=== PATIENT | female | born 1990 | race Caucasian/White ===

== ENCOUNTER 2021-02-14 09:35 | Outpatient (CLI) | payer OTHER, SELFPAY ==
[2021-02-14 10:25] LABS: Hematocrit 35.1 % (37.0-47.0); Hemoglobin 11.4 g/dL (12.0-15.0); Mean Corpuscular HGB Conc 32.5 g/dl (32-36); Mean Corpuscular Hemoglobin 29.4 pg (26-34); Mean Corpuscular Volume 90.5 fl (80-100); Mean Platelet Volume 10.4 fl (7.4-10.4); Platelet Count Result 298 k/mm3 (150-375); Red Blood Count 3.88 M/mm3 (4.2-5.4); Red Cell Distribution Width 14.3 % (11.5-14.5); White Blood Count 12.1 K/mm3 (4.5-10.0)
[2021-02-14 10:39] LABS: Bilirubin,Total 0.2 mg/dL (0.2-1.3)
[2021-02-14 13:51] LABS: Rapid Plasma Reagin Non-Reactive (NonReactive)
== END 2021-02-14 09:36 | disposition home or self-care (01) ==
LOC: ANHLAB 09:38
PROVIDERS: Visit Provider Obstetrics & Gynecology
DX: Z01.818 Encounter for other preprocedural examination (principal)
CPT/HCPCS: 36415; 82247; 85027; 86592; 86850; 86900; 86901

== ENCOUNTER 2021-02-15 05:33 | Inpatient (IN) | payer OTHER, SELFPAY ==
--- NOTE | 2021-02-13 16:10 | PM.IMHP ---
H&P: HPI History of Present Illness Date/Time: 02/13/21 16:10 30-year-old 2 para 1 whose last menstrual period was 05/17/2020, EDC is 02/21/2021, confirmed by 8 week ultrasound presents at 39 weeks gestation for repeat section she declines attempted vaginal after her dates are good she is negative for group B strep Chief Complaint: term with previous section Review of Systems Review of Systems: All systems reviewed & are unremarkable except as noted in HPI and below PMFSH Family History Family History Father Diabetes mellitus Hypertension Mother Hypertension Sibling Arian's disease Social History Social History Substance use: never Spiritual care concerns: No Meds Home Medications and Allergies Home Medications Medication Instructions Recorded Confirmed Type PNV cmb#95-ferrous fumarate-FA 1 tablet PO DAILY 01/27/21 01/27/21 History [] cetirizine [Zyrtec] 10 mg PO DAILY 01/27/21 01/27/21 History Allergies Allergy/AdvReac Type Severity Reaction Status Date / Time No Known Allergies Allergy Verified 06/07/17 14:25 Exam Const: General: no acute distress Eyes: General: appearance normal, both eyes and all related structures Neck: Neck: supple and no JVD Thyroid: thyroid normal Resp: Effort & Inspection: normal respiratory effort Auscultation: clear to auscultation bilaterally Cardio: Rate: regular rate Rhythm: regular rhythm GI: Inspection: non-distended GI Palp: Yes Soft to palpation, No Tenderness to palpation present (GI) and No Guarding due to palpation present (GI) Auscultation: normal bowel sounds : General: Yes bladder normal to palpation Speculum Exam - Vagina: normal appearance of the vagina Speculum Exam - Cervix: normal appearance of the cervix Bimanual exam- vagina & uterus: non-tender and enlarged Skin: General skin exam: no rashes or lesions noted Extrem: General: normal to inspection and no edema Psych: Mental Status: mental status grossly normal Affect: normal affect Assessment and Plan Additional Plan impression: Term with previous section Plan: Repeat low-transverse section
[2021-02-15] VITALS (69 sets, daily range): BP systolic 96–121; BP diastolic 53–106; PULSE 54–99; RESP 12–18; TEMP 36.2–36.6; O2SAT 97–100; BMI 26.2
[2021-02-15] MEDS: LACTATED RINGERS 1,000 ML 125 ML IV CONT ×2 (06:00→06:57)
--- NOTE | 2021-02-15 06:11 | LDADM ---
This patient, Oumou Campos, was admitted to Labor/Delivery/Recovery 120 on 02/15/21 at 05:33. Plans for section, pain management and were discussed with patient. Patient/family oriented to hospital policies and general routines including ID bracelet, bed and alarms, visiting hours, pain management, procedures, bathroom and other care routines, personal items, smoking policy, room service/diet and guest tray routines, security routines, and visiting hours. Patient/Family are encouraged to report perceived risks to care and to ask questions if they do not understand what they are told or what they should do. See OBIX for further documentation.
--- NOTE | 2021-02-15 06:51 | WPDHPUPDATE1 ---
History and Physical Update Update Date/Time: 02/15/21 06:51 History and Physical has been reviewed, including an updated exam of the patient. There are NO changes in the patient's condition. Risks, benefits, and alternatives have been discussed and questions answered. Patient agrees to proceed with procedure.
--- NOTE | 2021-02-15 08:07 | W.PM.PROC2 ---
Procedure Note - Detailed Date of Procedure 02/15/21 Pre-op Diagnosis Post-op Diagnosis same Procedure Performed Repeat low-transverse section Surgeon Derek Spain MD Anesthesia spinal Indications This is a 30-year-old 2 para 1 at term who declined vaginal after Findings Female 7lb 0oz with Apgars of 8 and 9 at 1 and 5minutes respectively Description of Procedure The patient was prepped draped in normal sterile fashion placed in the dorsal lithotomy position. Under excellent spinal anesthetic the abdomen was entered in Pfannenstiel fashion progressive layers of fascia. The fascia was incised in upward outward fashion bilaterally. Underlying muscles sharply dissected parietal peritoneum elevated Chelsey clamps and by sharp dissection and carried to the bladder. Bladder blade was placed and a bladder flap formed. Bladder blade returned a low transverse incision made. The head delivered in the ARACELIS position. Anterior posterior shoulder delivered spontaneously. Cord clamped x2 cut. Infant passed off the table given Apgars of 8 [id number] 9 [id number]. Cord blood was drawn placenta and placenta delivered intact spontaneously. 20units Pitocin placed in IV to help firm the uterus. Uterus delivered from the abdomen. After inspecting the inside of the uterus and no debris remained, the uterus was closed with continuous running 0 Vicryl from lateral edge to lateral edge. This was followed by a 2nd imbricating running locking 0 Vicryl from lateral edge to lateral edge. Hysterotomy incision appeared clear. The ovaries and tubes were within normal limits and the uterus returned the abdomen. The hysterotomy incision inspected 1 last time and blood loss estimated. The laps removed and accounted for. The fascia closed with continuous running 0 Vicryl from lateral edge to midline bilaterally. Irrigation subcutaneous layer and the skin closed with glue. There were no immediate complications and blood loss by QBL was 180cc. All sponge, needle, instrument counts were correct. There were no immediate complications Estimated Blood Loss 180 Drains No Packing No Pathology none sent Complications No immediate complications Condition stable
--- NOTE | 2021-02-15 08:26 | WPDANESEPPF ---
Anes - Initial Pre Proc Eval Procedure: Operation Date: 02/15/21 07:30 Proposed Procedures p Repeat Section - Derek Spain MD Date/Time: 02/15/21 08:26 Surgeon: Derek Spain MD Pre Op Diagnosis: Patient Data Age: 30 Gender: F Height: 1.68 m Weight: 73.6 kg Last Vital Signs Pulse 76 02/15/21 08:21 BP 101/54 L 02/15/21 08:21 Pulse Ox 100 02/15/21 08:24 Allergies Allergy/AdvReac Type Severity Reaction Status Date / Time No Known Allergies Allergy Verified 06/07/17 14:25 Home Medications Medication Instructions Recorded Confirmed Type PNV cmb#95-ferrous fumarate-FA 1 tablet PO DAILY 01/27/21 02/15/21 History [] cetirizine [Zyrtec] 10 mg PO DAILY 01/27/21 02/15/21 History hydrocodone-acetaminophen 1 tablet PO Q4H PRN #30 tablet 02/15/21 Rx Patient hx anesthesia problems: none Family hx anesthesia problems: none Results Review: All pre-operative results and documents have been reviewed as part of the pre-operative evaluation. [facility] Past Medical History Medical History (Updated 02/15/21 @ 08:26 by Derek Akbar MD) Anxiety Surgical History Surgical History (Updated 02/15/21 @ 08:26 by Derek Akbar MD) History of section Family History Family History Father Diabetes mellitus Hypertension Mother Hypertension Sibling Arian's disease Social History Social History Smoking status: Never smoker Substance use: never Spiritual care concerns: No Anes - Eval Final PreProcedure Day of Procedure 02/15/21 08:26 Patient weight: normal Heart: regular rate and rhythm Lungs: clear to auscultation Airway: Mallampati scale class II Neurological: alert and oriented Last oral intake: >/= 8 hours ASA classification: II Emergent: no Anesthetic plan: proceed Anesthesia type and monitoring: regional spinal and standard monitoring Results Review: All pre-operative results and documents have been reviewed as part of the pre-operative evaluation. Informed Consent: The patient's anesthetic plan and its attendant risks and benefits were discussed preoperatively at 0630 prior to surgery with the patient/family/POA. Questions were solicited and answers provided to the satisfaction of the patient/family/POA.
[2021-02-15] MEDS: fentaNYL CITRATE INJ (*CRX) 100 MCG/2 ML VIAL 25 MCG IV PUSH ×3 (08:43→09:40)
[2021-02-15] MEDS: OXYTOCIN 30 UNITS/NS 500 ML 30 UNITS/500 ML BAG 125 UNITS IV CONT (08:51)
[2021-02-15] MEDS: KETOROLAC 30 MG/ML VIAL (*BKC) IV PUSH (10:30)
--- NOTE | 2021-02-15 10:33 | OBPPTRN ---
Patient transferred to post room # 292 via stretcher. Support person present. Oriented to unit, room, information board, rooming in, admission packet and security measures. Patient verbalizes understanding. PT transferred to bed via maxi air with out difficulty. PT introductions made and plan of care discussed per post op c section, pain management, bottle feeding, daily care activities. PT and spouse both recipients of such instructions and care this shift. PT received such instructions per one to one discussion, mom baby care guide and demonstration. no barriers to learning identified at this time.
[2021-02-15] MEDS: diphenhydrAMINE HCl CAP 25 MG CAPSULE PO (11:48)
[2021-02-15] MEDS: SIMETHICONE 80 MG TAB.CHEW PO (16:56)
[2021-02-15] MEDS: DOCUSATE SODIUM 100 MG CAPSULE PO (16:56)
[2021-02-15] MEDS: HYDROcodone/acetaminophen (*CRX) 5-325 MG TABLET 1 TAB PO ×2 (16:57→20:17)
[2021-02-15] MEDS: IBUPROFEN 600 MG TABLET PO (16:58)
[2021-02-16 00:05] VITALS: BP 103/67; PULSE 83; RESP 16; TEMP 36.6; O2SAT 97
[2021-02-16] MEDS: HYDROcodone/acetaminophen (*CRX) 5-325 MG TABLET 1 TAB PO ×5 (00:08→16:04)
[2021-02-16] MEDS: IBUPROFEN 600 MG TABLET PO ×4 (00:08→19:06)
[2021-02-16] MEDS: LORATADINE 10 MG TABLET PO (00:38)
[2021-02-16 03:45] VITALS: BP 117/79; PULSE 88; RESP 16; TEMP 36.6; O2SAT 99
[2021-02-16 04:56] LABS: Basophils Absolute Auto 0.1 K/mm3 (0.0-0.1); Basophils Percent Auto 0.4 % (0.2-1.2); Eosinophils Absolute Auto 0.1 K/mm3 (0-0.3); Eosinophils Percent Auto 0.8 % (0-4.4); Hematocrit 29.7 % (37.0-47.0); Hemoglobin 9.5 g/dL (12.0-15.0); Immature Granulocyte Absolute 0.06 K/mm3 (0.00-0.031); Immature Granulocyte Percent A 0.5 % (0-0.5); Lymphocytes Absolute Auto 2.08 K/mm3 (0.9-3.2); Lymphocytes Percent Auto 17.3 % (18.3-44.2); Mean Corpuscular Hemoglobin 28.9 pg (26-34); Mean Corpuscular Volume 90.3 fl (80-100); Mean Platelet Volume 10.7 fl (7.4-10.4); Monocytes Absolute Auto 0.6 K/mm3 (0.1-0.6); Monocytes Percent Auto 5.3 % (2.6-8.5); Neutrophils Absolute Auto 9.1 K/mm3 (1.3-6.7); Neutrophils Percent Auto 75.7 % (45.5-73.1); Platelet Count Result 242 k/mm3 (150-375); Red Blood Count 3.29 M/mm3 (4.2-5.4); Red Cell Distribution Width 14.5 % (11.5-14.5)
--- NOTE | 2021-02-16 06:12 | PM.OBPNVD ---
OB - PN: Subj Subjective Date/time seen: 02/16/21 06:12 Patient comments: no complaints and pain well controlled baby status: doing well and nursing well OB - PN: Obj Data Labs CBC & Chem 7: 02/16/21 03:55 Labs: Laboratory Results - last 24 hr 02/16/21 03:55 WBC 12.0 H RBC 3.29 L Hgb 9.5 L Hct 29.7 L MCV 90.3 MCH 28.9 MCHC 32.0 RDW 14.5 Plt Count 242 MPV 10.7 H Immature Gran % (Auto) 0.5 Neut % (Auto) 75.7 H Lymph % (Auto) 17.3 L [place] % (Auto) 5.3 Eos % (Auto) 0.8 Baso % (Auto) 0.4 Lymph # (Auto) 2.08 [place] # (Auto) 0.6 Eos # (Auto) 0.1 Baso # (Auto) 0.1 Abs Immat Gran (auto) 0.06 H Absolute Neuts (auto) 9.1 H Absolute Nucleated RBC 0.0 Nucleated RBC % 0.0 OB - PN A/P Plan day: 1 Plan: routine care Time Spent With Patient Time: Total time spent is greater than 50% in coordination of care (as documented) at patient's floor/unit and/or counseling patient: Time with patient: less than 15 minutes Review of Systems Review of Systems: All systems reviewed & are unremarkable except as noted in HPI and below Exam Const: General: no acute distress Eyes: General: appearance normal, both eyes and all related structures Neck: Neck: supple and no JVD Thyroid: thyroid normal Resp: Effort & Inspection: normal respiratory effort Auscultation: clear to auscultation bilaterally Cardio: Rate: regular rate Rhythm: regular rhythm GI: Inspection: non-distended GI Palp: Yes Soft to palpation, No Tenderness to palpation present (GI) and No Guarding due to palpation present (GI) Auscultation: normal bowel sounds : General: Yes bladder normal to palpation External Female Exam: normal external appearance Speculum Exam - Vagina: normal vaginal discharge and No vaginal bleeding Speculum Exam - Cervix: nontender Bimanual exam- vagina & uterus: bladder normal to palpation and No Cervical tenderness present OB/external & speculum: No vaginal bleeding Skin: General skin exam: no rashes or lesions noted Extrem: General: normal to inspection and no edema Psych: Mental Status: mental status grossly normal Affect: normal affect
[2021-02-16 07:50] VITALS: BP 105/60; PULSE 95; RESP 16; TEMP 36.6; O2SAT 99
[2021-02-16] MEDS: DOCUSATE SODIUM 100 MG CAPSULE PO ×2 (10:33→16:04)
[2021-02-16] MEDS: POLYSACCHARIDE IRON COMPLEX 150 MG CAPSULE PO ×2 (10:33→16:04)
--- NOTE | 2021-02-16 13:24 | WPDANLDPN2 ---
Anes-Prog Note L&D Date/Time: 02/16/21 13:24 Comfortable throughout: section Neuraxial method: spinal Epidural/Spinal procedure site: clean & non-tender Neuro status: Neuro function grossly intact. Cardiovascular status: normal Respiratory status: normal Airway patency: baseline Mental status: baseline Post-Op hydration status: normal Vital Signs: Last Vital Signs Temp 36.6 C 02/16/21 07:50 Pulse 95 02/16/21 07:50 Resp 16 02/16/21 07:50 BP 105/60 02/16/21 07:50 Pulse Ox 99 02/16/21 07:50 Pain score (VAS): 0 I/O: Intake & Output 02/15/21 02/16/21 02/16/21 23:59 07:59 15:59 Intake Total 2300 1025 Output Total 3250 1850 Balance -950 -825 Post-procedural complaints: none Patient feedback: Patient satisfied with anesthetic care.
--- NOTE | 2021-02-16 13:25 | WPDANLDNPN2 ---
Anes-Prog Note L&D-Neuraxial Date/Time: 02/16/21 13:25 Neuraxial medications: intrathecal PF morphine Patient feedback: Patient satisfied with post-operative pain management.
[2021-02-16] MEDS: SIMETHICONE 80 MG TAB.CHEW PO (19:07)
[2021-02-16 20:00] VITALS: BP 124/75; PULSE 90; RESP 18; TEMP 37; O2SAT 98
[2021-02-17] MEDS: IBUPROFEN 600 MG TABLET PO ×2 (01:00→07:37)
[2021-02-17] MEDS: HYDROcodone/acetaminophen (*CRX) 5-325 MG TABLET 1 TAB PO ×2 (01:00→07:37)
--- NOTE | 2021-02-17 07:35 | PC.NURSE ---
Patient viewed the discharge video Mother & Baby Care, The First Two Weeks . Patient was given the opportunity and encouraged to ask questions. Patient verbalized understanding of information shared and has been given the mother/baby guide for home reference.
[2021-02-17] MEDS: MULTIVIT/MIN/PREN/FOL AC/IRON TABLET 1 TAB PO (07:36)
[2021-02-17] MEDS: DOCUSATE SODIUM 100 MG CAPSULE PO (07:36)
[2021-02-17] MEDS: POLYSACCHARIDE IRON COMPLEX 150 MG CAPSULE PO (07:37)
[2021-02-17 08:00] VITALS: BP 113/71; PULSE 101; RESP 20; TEMP 37.1; O2SAT 98
--- NOTE | 2021-02-17 08:55 | PM.OBPNVD ---
OB - PN: Subj Subjective Date/time seen: 02/17/21 08:55 Interval history: Patient doing well this AM. she is ambulating. She is tolerating PO. She reports adequate pain control. Her bleeding is normal and she reports normal lochia. She denies fever, chills, N/V. She has not yet passed flatus. Patient comments: no complaints and pain well controlled; no flatus present OB - PN: Obj Data Labs CBC & Chem 7: 02/16/21 03:55 OB - PN A/P Plan day: 1 Plan: routine care Comments: patient doing well this AM s/p luo, voiding spontaneously tolerating PO H/H 9.10/07, will start iron supplementation continue routine PP care plan for circumcision today Time Spent With Patient Time: Total time spent is greater than 50% in coordination of care (as documented) at patient's floor/unit and/or counseling patient: Time with patient: less than 15 minutes Review of Systems Constitutional: Constitutional: Reports no additional constitutional complaints Cardiovascular: Cardiovascular: Reports no additional cardiovascular complaints Respiratory: Respiratory: Reports no additional respiratory complaints Gastrointestinal: Gastrointestinal: Reports no additional gastrointestinal complaints Genitourinary: Genitourinary: Reports no additional female genitourinary complaints Exam Const: General: comfortable and no acute distress Resp: Effort & Inspection: normal respiratory effort Auscultation: clear to auscultation bilaterally Cardio: Rate: regular rate GI: GI Palp: Yes Soft to palpation and Yes Tenderness to palpation present (GI) (appropriately tender around incision ) Auscultation: normal bowel sounds Other: fundus firm and below umbilicus Incision C/D/I Urinary Catheter: Urinary Catheter: urine clear Psych: Appearance: grossly normal Mental Status: mental status grossly normal Affect: normal affect
--- NOTE | 2021-02-17 09:16 | PM.OBDSVD ---
DS: Admitting Diagnosis Discharge Date 02/17/21 Admitting Diagnosis Prior section OB - DS: Summary OB Procedures : None OB Procedures Intrapartum: OB Procedures: : None Peripartum Data Infant Delivery Method: Section Procedures: Procedures Operation Date: 02/15/21 07:30 Actual Procedure Side Surgeon p Repeat Section Derek Spain MD complications: none Status at Discharge Functional status at discharge: independent ambulation Overall status at discharge: patient is progressing back to baseline Time Spent with Patient Time attestation: Total time spent providing and/or coordinating discharge services: Time spent: Less than 30 minutes Exam Const: General: comfortable and no acute distress Resp: Effort & Inspection: normal respiratory effort Auscultation: clear to auscultation bilaterally Cardio: Rate: regular rate GI: Inspection: non-distended GI Palp: Yes Soft to palpation, No Firmness to palpation present (GI), Yes Tenderness to palpation present (GI) (mild tenderness over incision ) and No Guarding due to palpation present (GI) Auscultation: normal bowel sounds Psych: Appearance: grossly normal Mental Status: mental status grossly normal Discharge Plan Discharge Attending physician on discharge: Derek Spain Discharging Clinician: Derek Spain Patient Disposition: Home, Self-Care Activity: may shower and no straining Diet: heart healthy Wound Care Instructions: follow printed instructions Patient Instructions: Antibiotic Form Stand Alone Forms: General Discharge Information Follow-up/Referrals: Derek Spain MD [Physician] - Discharge Medications: New hydrocodone-acetaminophen 5-325 mg tablet 1 tablet PO Q4H PRN (Reason: pain) Qty: 30 RF: 0 No Action PNV cmb#95-ferrous fumarate-FA [] 28 mg iron- 800 mcg Tablet 1 tablet PO DAILY RF: 0 cetirizine [Zyrtec] 10 mg Tablet 10 mg PO DAILY RF: 0 Date of admission: 02/15/21 05:33 Primary Care Provider: PHYSICIAN,PSYCHOMETRICIAN Admitting Provider: Derek Spain Attending physician on admission: Derek Spain Condition: Stable
[2021-02-19 08:46] VITALS: BP 120/77; PULSE 100; RESP 20; TEMP 37.1; O2SAT 98
== END 2021-02-17 12:15 | disposition home or self-care (01) | DRG 788 ==
LOC: ANHLDR 06:53 → ANHOB2 02-16 15:08 → ANHLDR 02-19 12:48 → ANHOB2 02-19 12:48
PROVIDERS: Admitting Provider Obstetrics & Gynecology; Visit Provider Student in an Organized Health Care Education/Training Program
PROC: 10D00Z1 Extraction of Products of Conception, Low, Open Approach (ICD-10-PCS; CPT 59514; principal; 2021-02-15 07:30)
DX: O34.211 Maternal care for low transverse scar from previous cesarean delivery (principal); Z3A.39 39 weeks gestation of pregnancy; Z37.0 Single live birth
CPT/HCPCS: 36415; 82247; 85025; 85027; 86592; 86850; 86900; 86901; A9270; J0131; J1885; J2274; J2590; J3010; J7120

== ENCOUNTER 2021-02-21 14:09 | Outpatient (CLI) | payer OTHER, SELFPAY ==
--- NOTE | 2021-02-21 14:24 | ECG_ITS ---
Measurements Intervals [place] Rate: 78 P: 44 [place]: 129 QRS: 20 QRSD: 98 T: 44 QT: 344 QTc: 394 Interpretive Statements SINUS RHYTHM WITH SINUS ARRHYTHMIA INCOMPLETE RIGHT BUNDLE BRANCH BLOCK BASELINE ARTIFACT- I, II, III BORDERLINE ECG Electronically Signed On 02-21-2021 14:35:54 CDT by Joey Varner D.O.
== END 2021-02-21 14:10 | disposition home or self-care (01) ==
PROVIDERS: Visit Provider Obstetrics & Gynecology
DX: R00.0 Tachycardia, unspecified (principal); I45.10 Unspecified right bundle-branch block
CPT/HCPCS: 93005